=== PATIENT | male | born 1960 | race African-American/Black ===

== ENCOUNTER 2017-11-10 11:23 | Emergency (ER) | payer BC ==
[~2017-11-10] VITALS: Ht 167.6 cm; Wt 90.0 kg
[~2017-11-10 11:23] MED LIST: AMOXICILLIN500 MG PO; ASPIRIN LOW DOS81 M2 PO; CLARITIN10 M1 PO; LISINOPRIL5 MG PO; METFORMIN500 MG PO; VENTOLIN HF1 IN; VICODIN1 TA1 PO
[2017-11-10 12:05] LABS: HEMATOCRIT 42.8 % (39.0-50.0); HEMOGLOBIN 13.9 g/dl (14.0-18.0); IMMATURE GRANULOCYTES 0.2 % (0.0-1.0); MEAN CELL VOLUME 85.6 fL CALC (80.0-100.0); MEAN CORPUSCULAR HGB 27.8 pG CALC (26.0-32.0); MEAN CORPUSCULAR HGB CONC 32.5 g/L CALC (32.0-36.0); NEUT# 2.61 thou/uL (1.82-7.42); RED CELL DISTRI WIDTH 13.6 % (11.5-15.5)
[2017-11-10 12:22] LABS: ANION GAP 15 (6-22 (CALC)); BUN 14 mg/dL (9-20); BUN/CREATININE RATIO 18 (12-20 (CALC)); CARBON DIOXIDE 25 mmol/l (22-30); CHLORIDE 104 mmol/l (95-108); CREATININE 0.8 mg/dL (0.7-1.3); GFR > 60 ML/MIN (>=60 (CALC)); GFR FOR AFR.AMER. > 60 ML/MIN (>=60 (CALC)); POTASSIUM 3.8 mmol/l (3.5-5.1); SODIUM 141 mmol/l (137-146)
[2017-11-10] MEDS ORDERED: MECLIZINE25 MG PO (12:56)
[2017-11-10 13:07] VITALS: BP 133/84
== END 2017-11-10 13:18 | disposition home or self-care (01) | DRG 149 ==
LOC: ED 11:23
PROVIDERS: Family Medicine
DX: R42 Dizziness and giddiness (principal); E11.9 Type 2 diabetes mellitus without complications; I10 Essential (primary) hypertension; Z79.84 Long term (current) use of oral hypoglycemic drugs

== ENCOUNTER 2019-08-15 | Observation (INO) | payer BC ==
[~2019-08-15] MED LIST changes: +MECLIZINE25 MG PO
--- NOTE | 2019-08-15 09:32 | NUR ---
PT TO ROOM FOR BEDSIDE TRIAGE
[2019-08-15 10:21] LABS: HEMATOCRIT 42.7 % (39.0-50.0); HEMOGLOBIN 13.7 g/dl (14.0-18.0); IMMATURE GRANULOCYTES 0.3 % (0.0-5.0); MEAN CELL VOLUME 85.2 fL CALC (80.0-100.0); MEAN CORPUSCULAR HGB 27.3 pG CALC (26.0-32.0); MEAN CORPUSCULAR HGB CONC 32.1 g/L CALC (32.0-36.0); NEUT# 3.2 thou/uL (1.82-7.42); RED BLOOD COUNT 5.01 mill/uL (4.70-6.10); RED CELL DISTRI WIDTH 13.1 % (11.5-15.5)
--- NOTE | 2019-08-15 10:25 | NUR ---
PT PRESENTS WITH CHEST PAIN OF 710 BEFORE ASPIRIN ADMINISTRATION. PT STATES THAT RECENTLY HE HAS BEEN LIFTING WEIGHTS AND THAT EVER SINCE THEN HE FELLS PAIN WHEN INHALING DEEPLY AND HAS A PULLING PAIN SENSATION IN HIS GROIN. PT STATES NOT GRADUALLY ACCUMULATING WEIGHTS, HE JUST SUDDENLY STARTED LIFTING HEAVY WEIGHTS. LUNGS ARE CLEAR BI, AND OTHER THAN GROIN PAIN PT DENIES ANY ABDOMINAL PAIN. CAP REFILL BRISK. CALL LIGHT WITHIN REACH. WILL CONTINUE TO MONITOR.
[2019-08-15 10:36] LABS: ALBUMIN 3.9 g/dL (3.2-5.0); ALKALINE PHOSPHATASE 60 u/l (38-126); ANION GAP 12 (6-22 (CALC)); BILIRUBIN, TOTAL 0.5 mg/dL (0.0-1.4); BUN 16 mg/dL (9-20); BUN/CREATININE RATIO 23 (12-20 (CALC)); CARBON DIOXIDE 24 mmol/l (22-30); CHLORIDE 105 mmol/l (95-108); CREATININE 0.7 mg/dL (0.7-1.3); GFR > 60 ML/MIN (>=60 (CALC)); GFR FOR AFR.AMER. > 60 ML/MIN (>=60 (CALC)); LIPASE 104 u/l (23-300); POTASSIUM 4.4 mmol/l (3.5-5.1); SGOT/AST 25 u/l (17-59); SODIUM 137 mmol/l (137-146); TOTAL PROTEIN 7.1 g/dL (6.3-8.2)
[2019-08-15] MEDS ORDERED: METFORMIN500 MG PO (11:06)
--- NOTE | 2019-08-15 11:55 | NUR ---
PT RESTING IN STRETCHER AND DENIES ANY COMPLAINTS AT THIS TIME. CALL LIGHT WITHIN REACH. PT STATES A PAIN OF 3/10
--- NOTE | 2019-08-15 12:30 | NUR ---
PT REQUESTS FOR BLANKETS, PT NEEDS MET. CALL LIGHT WITHIN REACH, PLAN OF CARE DISCUSSED AND WAIT TIME ADVISED.
--- NOTE | 2019-08-15 13:16 | NUR ---
PT RESTING IN STRETCHER, DENIES ANY NEEDS AT THIS TIME. CALL LIGHT WITHIN REACH
--- NOTE | 2019-08-15 13:38 | NUR ---
WELFARE OFFICER AT BEDSIDE TO PROVIDE 1800 DIABETIC INFO TO PATIENT REQUESTED.
--- NOTE | 2019-08-15 14:04 | NUR ---
SBAR PRINTED TO FLOOR
--- NOTE | 2019-08-15 15:24 | NUR ---
GAVE REPORT TO LINN IN MED SURG
--- NOTE | 2019-08-15 16:33 | NUR ---
MED SURG SAID ROOM WAS READY. PT TRANSPORTED VIA W/C TO MED SURG IN STABLE CONDITION AND IN NO DISTRESS
[2019-08-15 16:45] VITALS: BP 116/74
--- NOTE | 2019-08-15 17:00 | NUR ---
NEW ADMIT A/OX4, NO C/O PAIN, NO C\O PAIN, NO S/S RESP DISTRESS, PATIENT ON ROOM AIR PATIENT AMBULATE FROM STRETCHER TO BED WITHOUT ASSISTED, PATIENT SKIN INTACT, ORIENT PATIENT TO ROOM, STAFF , CALL LIGHT SYSTEM, HOURLY ROUNDING, WILL CONTINUE TO MONITOR PATIENT
[2019-08-15 18:40] VITALS: BP 137/57
--- NOTE | 2019-08-15 18:55 | NUR ---
REPORT RECEIVED FROM ROLAND RIDDLE. PT RESTING IN BED. NO S/S OF DISTRESS AT THIS TIME. WILL CONTINUE TO MONITOR.
--- NOTE | 2019-08-15 19:50 | NUR ---
PT RESTING IN BED ALERT AND ORIENTED, FAMILY AT BEDSIDE. RESPIRATIONS EVEN AND UNLABORED ON RA, LUNGS SOUND CLEAR. PEDAL PULSES WEAK. PT DENIES ANY PAIN OR DISCOMFORT AT THIS TIME. TELE IN PLACE. CALL LUCIO WITHIN REACH WILL CONTINUE TOP MONITOR.
--- NOTE | 2019-08-16 00:55 | NUR ---
PT RESTING IN BED. TELE IN PLACE. RESPIRATIONS EVEN AND UNLABORED ON RA. WILL CONTINUE TO MONTIOR.
[2019-08-16 03:48] VITALS: BP 106/69
--- NOTE | 2019-08-16 04:35 | NUR ---
PT RESTING IN BED. TELE IN PLACE. NO S/S OF DISTRESS AT THIS TIME. WILL CONTINUE TO MONITOR.
[2019-08-16 06:30] LABS: MAGNESIUM 2.2 mg/dL (1.6-2.3)
--- NOTE | 2019-08-16 07:40 | NUR ---
PT SITTING IN BED WITH AT BEDSIDE. A&O X3. NO DISTRESS NOTED. NO COMPLAINTS OF CP AT THIS TIME. STATES HE WAS DOING EXERCISE AND THERE WAS SUDDEN PAIN IN HIS CHEST. NO OTHER NEEDS. CALL LIGHT IN REACH. ASSESSMENT COMPLETED. DISCUSSED POC. CONTINUE TO MONITOR.
--- NOTE | 2019-08-16 09:02 | NUR ---
PER PT, HE HAS TAKEN HIS ASPIRIN AND METFORMIN ALREADY THIS MORNING. HE STATES HE WAS NOT AWARE THAT HE WAS NOT ALLOWED TO TAKE HIS MEDICATIONS NOR THAT HE WAS SUPPOSED TO SEND THEM HOME. EXPLAINED TO PT THAT HE IS NOT SUPPOSED TO CONTINUE TAKING HOME MEDICATIONS WHILE HE IS AT THE HOSPITAL. PT VERBALIZED UNDERSTANDING. CALL LIGHT IN REACH. CONTINUE TO MONITOR.
--- NOTE | 2019-08-16 10:54 | NUR ---
PT REC IV TORADOL. PT TOLERATED WELL. PT STATES HE ONLY FEELS A PAIN WHEN HE MOVES OR WHEN HE TAKES IN A DEEP BREATH. NO OTHER NEEDS AT THIS TIME. CALL LIGHT IN REACH. CONTINUE TO MONITOR.
[2019-08-16] MEDS ORDERED: ADLT ASA LOW81 MG PO (13:19)
[2019-08-16 15:46] VITALS: BP 108/69
--- NOTE | 2019-08-16 16:05 | NUR ---
DISCUSSED D/C INSTRUCTIONS WITH PT. PT VERBALIZED UNDERSTANDING. IV REMOVED, INTACT UPON REMOVAL.
== END 2019-08-16 16:22 | disposition home or self-care (01) | DRG 206 ==
PROVIDERS: Family Medicine; ADMIT Internal Medicine
DX: S23.41XA Sprain of ribs, initial encounter (principal); K59.00 Constipation, unspecified; E11.9 Type 2 diabetes mellitus without complications; I10 Essential (primary) hypertension; X58.XXXA Exposure to other specified factors, initial encounter; Z79.84 Long term (current) use of oral hypoglycemic drugs; Z87.891 Personal history of nicotine dependence
CPT/HCPCS: G0378